=== PATIENT | male | born 1980 | race American Indian/Alaskan Native ===

== ENCOUNTER 2020-12-06 18:56 | Emergency (ER) | payer SELFPAY ==
[2020-12-06 19:56] VITALS: BP 166/105
--- NOTE | 2020-12-06 20:09 | Emergency Department Report ---
ED ENT HPI - General Chief complaint: Dental/Oral Stated complaint: TOOTHACHE Time Seen by Provider: 12/06/20 20:03 Source: patient Mode of arrival: Ambulatory Limitations: No Limitations - History of Present Illness Initial comments: Patient is a 40-year-old male presents emergency room complaints of right lower dental pain that began early this morning. He has associated swelling of the right gumline. He states he has had a crack in this tooth for several years. He states he has not seen a dentist since childhood. He denies any fever, nausea, vomiting, diarrhea, chills, difficulty swallowing, difficulty breathing. No past medical history. No allergies medications. - Related Data Previous Rx's Medication Instructions Recorded Last Taken Type Chlorhexidine Mouthwash [Peridex] 15 ml MM BID #1 bottle 12/06/20 Unknown Rx Naproxen [EC-Naprosyn] 500 mg PO BID PRN #14 tablet. 12/06/20 Unknown Rx Penicillin Vk [Veetids TAB] 500 mg PO QID 7 Days #56 tablet 12/06/20 Unknown Rx Allergies Allergy/AdvReac Type Severity Reaction Status Date / Time No Known Allergies Allergy Unverified 12/06/20 19:59 ED Dental HPI - General Chief complaint: Dental/Oral Stated complaint: TOOTHACHE Time Seen by Provider: 12/06/20 20:03 Source: patient Mode of arrival: Ambulatory Limitations: No Limitations - Related Data Previous Rx's Medication Instructions Recorded Last Taken Type Chlorhexidine Mouthwash [Peridex] 15 ml MM BID #1 bottle 12/06/20 Unknown Rx Naproxen [EC-Naprosyn] 500 mg PO BID PRN #14 tablet. 12/06/20 Unknown Rx Penicillin Vk [Veetids TAB] 500 mg PO QID 7 Days #56 tablet 12/06/20 Unknown Rx Allergies Allergy/AdvReac Type Severity Reaction Status Date / Time No Known Allergies Allergy Unverified 12/06/20 19:59 ED Review of Systems ROS: Stated complaint: TOOTHACHE Other details as noted in HPI Comment: All other systems reviewed and negative ED Past Medical Hx - Past Medical History Previous Medical History?: No - Surgical History Past Surgical History?: No - Social History Smoking Status: Current Every Day Smoker Substance Use Type: None - Medications Home Medications: Home Medications Medication Instructions Recorded Confirmed Last Taken Type Chlorhexidine Mouthwash [Peridex] 15 ml MM BID #1 bottle 12/06/20 Unknown Rx Naproxen [EC-Naprosyn] 500 mg PO BID PRN #14 tablet. 12/06/20 Unknown Rx Penicillin Vk [Veetids TAB] 500 mg PO QID 7 Days #56 tablet 12/06/20 Unknown Rx ED Physical Exam - General Limitations: No Limitations General appearance: alert, in no apparent distress - Head Head exam: Present: atraumatic, normocephalic - Eye Eye exam: Present: normal appearance - ENT ENT exam: Present: mucous membranes moist, other (there are multiple areas of dental carries/decay, there is a hole present in the right lower molar, there is adjacent 1 cm area of induration of the gumline, no obvious fluctuance, no drainage, no trismus, no tongue elevation, no submandibular edema, no uvular edema or deviation, no muffled voice) - Respiratory Respiratory exam: Absent: respiratory distress, accessory muscle use - Neurological Exam Neurological exam: Present: alert, oriented X3 - Psychiatric Psychiatric exam: Present: normal affect, normal mood - Skin Skin exam: Present: warm, dry, intact ED Course Vital Signs 12/06/20 19:48 Temperature 98.4 F Pulse Rate 89 Respiratory 18 Rate Blood Pressure 166/105 O2 Sat by Pulse 96 Oximetry ED Medical Decision Making - Medical Decision Making Patient is a 40-year-old male presents emergency room complaints of right lower dental pain that began early this morning. He has associated swelling of the right gumline. He states he has had a crack in this tooth for several years. He states he has not seen a dentist since childhood. He denies any fever, nausea, vomiting, diarrhea, chills, difficulty swallowing, difficulty breathing. No past medical history. No allergies medications. vitals with elevated blood pressure otherwise stable, pt advised to follow-up with his primary care doctor, he is currently asymptomatic, the up-to-date medical literature does not recommend emergently lowering asymptomatic elevated blood pressure. on exam: there are multiple areas of dental carries/decay, there is a hole present in the right lower molar, there is adjacent 1 cm area of induration of the gumline, no obvious fluctuance, no drainage, no trismus, no tongue elevation, no submandibular edema, no uvular edema or deviation, no muffled voice. Examination appears consistent with dental carry with dental abscess. No signs of facial cellulitis, facial abscess, Ludwigs at this time. Patient given prescription for medication. Advised patient Please take medication as prescribed. Follow-up with a dentist. It is very important that you follow-up. Return to emergency room for any new or symptoms. Critical care attestation.: If time is entered above; I have spent that time in minutes in the direct care of this critically ill patient, excluding procedure time. ED Disposition Clinical Impression: Dental caries, Dental abscess Disposition: TO HOME OR SELFCARE Is pt being admited?: No Does the pt Need Aspirin: No Condition: Stable Instructions: Dental Abscess Additional Instructions: Please take medication as prescribed. Follow-up with a dentist. It is very important that you follow-up. Return to emergency room for any new or symptoms. Prescriptions: Naproxen [EC-Naprosyn] 500 mg PO BID PRN #14 tablet.dr ORELLANA Reason: pain Chlorhexidine Mouthwash [Peridex] 15 ml MM BID #1 bottle Penicillin Vk [Veetids TAB] 500 mg PO QID 7 Days #56 tablet Referrals: [facility] [Outside] - 2-3 Days [facility] [Outside] - 2-3 Days Time of Disposition: 20:08 Print Language: [place]IZ[place]
== END 2020-12-06 20:29 | disposition home or self-care (01) ==
LOC: ED 18:56
DX: K04.7 Periapical abscess without sinus (principal); K02.9 Dental caries, unspecified; F17.200 Nicotine dependence, unspecified, uncomplicated; Z79.899 Other long term (current) drug therapy
CPT/HCPCS: 99282